=== PATIENT | male | born 1940 | race Caucasian/White ===

== ENCOUNTER 2017-11-22 06:30 | Day surgery (SDC) | payer MEDICARE ==
[2017-11-22] VITALS (8 sets, daily range): BP systolic 143–176; BP diastolic 71–129; PULSE 52–66; RESP 18–20; TEMP 97.6; O2SAT 92–99
[~2017-11-22] VITALS: Ht 172.7 cm; Wt 68.2 kg
[~2017-11-22 06:30] MED LIST: AMLO5 PO; ASPI81TA82 PO; OXYC-360 PO
[2017-11-22] MEDS ORDERED: ASPI-516 CHEW (07:02)
[2017-11-22] MEDS ORDERED: ATOR20TA15 PO (07:02)
[2017-11-22] MEDS ORDERED: METO25TA3 PO (07:02)
[2017-11-22 07:44] LABS: AUTOMATED NEUTROPHIL # 4.2 TH/MM3 (1.8-7.7); BASOPHIL % 0.7 % (0.0-2.0); EOSINOPHIL # 0.3 TH/MM3 (0-0.4); EOSINOPHIL % 4.7 % (0.0-4.0); HEMATOCRIT 44.3 % (39.0-51.0); HEMOGLOBIN 15.2 GM/DL (13.0-17.0); LYMPH % 25.7 % (9.0-44.0); LYMPHOCYTE # 1.8 TH/MM3 (1.0-4.8); MEAN CELL VOLUME 95.1 FL (80.0-100.0); MEAN CORPUSCULAR HEMOGLOBIN 32.6 PG (27.0-34.0); MEAN CORPUSCULAR HGB CONC 34.3 % (32.0-36.0); MEAN PLATELET VOLUME 7.5 FL (7.0-11.0); MONO % 8.9 % (0.0-8.0); MONOCYTE # 0.6 TH/MM3 (0-0.9); PLATELET COUNT 185 TH/MM3 (150-450); RED BLOOD COUNT 4.66 MIL/MM3 (4.50-5.90); RED CELL DISTRIBUTION WIDTH 13.5 % (11.6-17.2)
[2017-11-22 07:57] LABS: INTERNATIONAL NORMALIZED RATIO 1.3 RATIO; PROTHROMBIN TIME - PATIENT 12.7 SEC (9.8-11.6)
[2017-11-22] MEDS ORDERED: SODIUM CHLOR 0.9% 1000 ML INJ 1,000 ML IV SCH (08:00)
[2017-11-22 08:02] LABS: BICARBONATE 27.9 MEQ/L (21.0-32.0); CALCIUM 8.9 MG/DL (8.5-10.1); CREATININE 1.09 MG/DL (0.60-1.30)
[2017-11-22] MEDS ORDERED: ceFAZolin 2 GM PREMIX 50 ML IV SCH (08:30)
[2017-11-22] MEDS ORDERED: MIDAZOLAM HCL 2 MG/2 ML VIAL ONE (08:34)
[2017-11-22] MEDS ORDERED: fentaNYL CITRATE 250 MCG/5 ML AMP ONE (08:35)
[2017-11-22] MEDS ORDERED: THROMBIN (TOPICAL) 5,000 UNIT VIAL ONE (10:47)
--- NOTE | 2017-11-22 11:19 | PD.RAD ---
Post Procedure Progress Note Pre Procedure Diagnosis: (1) Endoleak post (EVAR) endovascular aneurysm repair Post Procedure Diagnosis: (1) Endoleak post (EVAR) endovascular aneurysm repair Procedure Date: Nov 22, 2017 Supervising Radiologist: Mendoza Mcduffie Estimated blood loss: 5cc Anesthesia: Local, Conscious Sedation Plan of Activity Patient to Unit: ROPU Patient Condition: Good Additional Comments: Successful endoleak repair Catheter manipulated from the SMA through the marginal artery to the CIARA. CIARA stump coiled. Full dictated report to follow See PACS Report for procedural detail/treatment Mendoza Mcduffie MD Nov 22, 2017 11:19
--- NOTE | 2017-11-22 12:39 | RADRPT ---
EXAM DATE/TIME: 11/22/2017 08:44 [facility] COMPARISON: No previous studies available for comparison. INDICATIONS : Patient presents with an aneurysm enlargement AAA Type II endoleak. MEDICAL HISTORY : AAA Repair Linguineal Hernia Hepatic Stenosis BPH SURGICAL HISTORY : AA Repair ENCOUNTER: Initial ACUITY: 2 weeks PAIN SCORE: 0/10 FLUORO TIME: 49.7 minutes IMAGE SERIES: 24 ACCESS SITE: Right Femoral artery SEDATION TIME: 135 minutes CONTRAST: 1.) 70 cc Visipaque (iodixanol) MEDICATION(S): 1.) 4 mg midazolam (Versed) IV 2.) 250 mcg fentanyl (Sublimaze) IV DEVICE(S): 1.) Right Superior mesenteric artery embolic coil(s) 2.) Right Superior mesenteric artery embolic coil(s) 3.) Right Superior mesenteric artery embolic coil(s) 4.) Right Superior mesenteric artery embolic coil(s) 5.) Right common femoral artery Angio-Seal 6 F PROCEDURE : 1. Ultrasound-guided puncture of the access site. 2. Angiography of the access site prior to closure device. 3. Conscious sedation with continuous EKG and Oximetry monitoring. 4. Percutaneous closure of the access site. 5. Angiography of the SMA 6. Angiography of the mesenteric circulation 7. embolization of the CIARA stump The risks, benefits and alternatives to the procedure were explained and verbal and written consent w as obtained. The site was prepped in sterile fashion. Full sterile technique was used, including ca p, mask, sterile gloves and gown and a large sterile sheet. Hand hygiene and 2% chlorhexidine and/or betadine/alcohol prep was utilized per protocol for cutaneous antisepsis. Sterile gel and sterile p robe cover were utilized for ultrasound guidance. The skin and subcutaneous tissues were infiltrated with local anesthetic solution. With ultrasound and fluoroscopic guidance the right common femoral artery was punctured and a vascula r sheath was placed. Angiography of the common femoral artery was performed for evaluation prior to percutaneous closure device placement. A 0.035 angle Glidewire and 4 Angolan catheter were advanced into the abdominal aorta. The SMA origin was easily selected. Injection of the SMA origin demonstrated the patient's SMA to be widely patent. There is a sizable marginal artery seen on the left which extended down to and eventually filled the inferior mesenteric artery. There was backflow from the CIARA stump into the patient's aneurysm sac. The 4 Angolan heart was exchanged for a 5 Angolan. The first branch off the SMA was selected. A Prowler select microcatheter and agility wire were advanced through the 5 Angolan hook catheter, into the fir st branch off the SMA, across the marginal artery, down the left colic branch and into the CIARA. The microcatheter was eventually manipulated up into the aneurysm sac. A 3 cm x 3 mm coil was advance d into the aneurysm sac at the ostomy of the CIARA. 2 mm x 2 cm coils were placed into the proximal CIARA as well. A followup angiogram demonstrated comple te occlusion of the stump of the CIARA. The distal CIARA branch of the sigmoid and rectum remain patent. Hemostasis was obtained with the prescribed medicated closure device. Conscious sedation was perform ed with the prescribed dosages and duration as above in the presence of an independent trained radiol ogy nurse to assist in the monitoring of the patient. EKG and oximetry remained stable throughout th e procedure. CONCLUSION: Successful embolization of the stump of the CIARA via the marginal artery. The patient tolerated the pr ocedure well. Mendoza Mcduffie MD on November 22, 2017 at 12:32 Board Certified Radiologist. This report was verified electronically.
== END 2017-11-22 16:15 | disposition home or self-care (01) ==
LOC: HROP 06:30 → HRIP 06:34 → HROP 16:15
PROVIDERS: ATTEND Surgery Vascular Surgery
DX: T82.330D Leakage of aortic (bifurcation) graft (replacement), subsequent encounter (principal); I71.4 Abdominal aortic aneurysm, without rupture; N40.0 Benign prostatic hyperplasia without lower urinary tract symptoms; K76.0 Fatty (change of) liver, not elsewhere classified; Z01.818 Encounter for other preprocedural examination
CPT/HCPCS: 36247; 37242; 75726; 75774; 76937; 80048; 85025; 85610; 85730; 99152; 99153; C1760; C1769; C1887; C1894; J0690; J2250; J3010; J7030

== ENCOUNTER 2017-11-29 13:02 | Day surgery (SDC) | payer MEDICARE ==
[~2017-11-29 13:02] MED LIST changes: -AMLO5 PO; +ASPI-516 CHEW; -ASPI81TA82 PO; +ATOR20TA15 PO; +METO25TA3 PO; -OXYC-360 PO
== END 2017-11-29 13:40 | disposition home or self-care (01) ==
LOC: HROP 13:02 → HRIP 13:05 → HROP 13:40
PROVIDERS: ATTEND Hospitalist
DX: I71.4 Abdominal aortic aneurysm, without rupture (principal); N40.0 Benign prostatic hyperplasia without lower urinary tract symptoms; K76.0 Fatty (change of) liver, not elsewhere classified